=== PATIENT | male | born 1985 | race Caucasian/White ===

== ENCOUNTER 2020-08-13 08:15 | Outpatient (CLI) | payer BC, SELFPAY ==
--- NOTE | 2020-08-13 08:18 | ECG_ITS ---
Measurements Intervals [place] Rate: 84 P: 19 ME: 163 QRS: 21 QRSD: 102 T: 29 QT: 355 QTc: 421 Interpretive Statements SINUS RHYTHM INCOMPLETE RIGHT BUNDLE BRANCH BLOCK BORDERLINE ECG Electronically Signed On 08-13-2020 8:28:13 INTERVENTIONAL NEURORADIOLOGIST by Kevin Vasquez D.O.
== END 2020-08-13 08:16 | disposition home or self-care (01) ==
LOC: ANHSURGERY 08:18
PROVIDERS: PCP Family Medicine; Visit Provider Surgery
DX: Z01.810 Encounter for preprocedural cardiovascular examination (principal); I45.10 Unspecified right bundle-branch block; I10 Essential (primary) hypertension
CPT/HCPCS: 93005

== ENCOUNTER 2020-08-16 01:56 | Outpatient (CLI) | payer BC, SELFPAY ==
[2020-08-16 19:10] LABS: SARS-CoV-2 RNA PCR Negative
== END 2020-08-16 01:57 | disposition home or self-care (01) ==
LOC: ANHCOVIDDT 01:56
PROVIDERS: PCP Family Medicine; Visit Provider Surgery
DX: Z01.812 Encounter for preprocedural laboratory examination (principal); Z20.828 Contact with and (suspected) exposure to other viral communicable diseases
CPT/HCPCS: 87635; C9803; U0003

== ENCOUNTER 2020-08-19 00:33 | Day surgery (SDC) | payer BC, SELFPAY ==
[2020-08-06 08:40] VITALS: BMI 31.2
[2020-08-19] VITALS (7 sets, daily range): BP systolic 103–149; BP diastolic 53–83; PULSE 88–101; RESP 12–16; TEMP 36.4–36.8; O2SAT 94–100
[2020-08-19] MEDS: ACETAMINOPHEN 500 MG TABLET 1000 MG PO (10:39)
[2020-08-19] MEDS: LACTATED RINGERS 1,000 ML 30 ML IV CONT ×2 (10:40→12:58)
[2020-08-19] MEDS: KETOROLAC 15 MG/ML VIAL (*BKC) IV PUSH (10:45)
--- NOTE | 2020-08-19 10:54 | WPDANESEPPF ---
Anes - Initial Pre Proc Eval Procedure: Operation Date: 08/19/20 12:00 Proposed Procedures p Open Periumbilical Ventral Hernia Repair with Mesh - Casey Stephens DO Date/Time: 08/19/20 10:54 Surgeon: Casey Stephens DO Pre Op Diagnosis: ventral hernia Patient Data Age: 35 Gender: M Height: 6 ft Weight: 104.3 kg Allergies Allergy/AdvReac Type Severity Reaction Status Date / Time No Known Allergies Allergy Verified 08/19/20 10:49 Home Medications Medication Instructions Recorded Confirmed Type lisinopril 10 mg tablet 10 mg PO DAILY #90 tablet 05/02/20 08/19/20 Rx allopurinol 100 mg tablet 100 mg PO DAILY #90 tablet 06/05/20 08/19/20 Rx dextroamphetamine-amphetamine ER 10 mg PO DAILY #30 cap 07/05/20 08/19/20 Rx 10 mg 24hr capsule,extend release indomethacin 75 mg PO BID PRN 08/06/20 08/19/20 History Patient hx anesthesia problems: none Family hx anesthesia problems: none [facility] Past Medical History Medical History (Updated 08/19/20 @ 10:47 by Daquan Hammond MD) BMI 30.0-30.9,adult Hypertension HU (obstructive sleep apnea) Surgical History Surgical History History of repair of ACL right knee Family History Family History Father Diabetes mellitus Other Family history of type 2 diabetes mellitus Social History Social History Smoking status: Never smoker Alcohol intake: current Living arrangements: with family 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 Questions were solicited and answers provided to the satisfaction of the patient/family/POA.
--- NOTE | 2020-08-19 11:16 | PM.IMHP ---
H&P: HPI History of Present Illness Date/Time: 08/19/20 11:16 Chief complaint: ventral hernia Narrative: Gregory Luis III is a 35 year old male who presents for ventral hernia repair. He reports no changes since being seen in the office. Review of Systems Review of Systems: All systems reviewed & are unremarkable except as noted in HPI and below Constitutional: Constitutional: Denies chills, Denies fever(s), Denies headache(s) and Denies weight loss Eyes: Eyes: Denies change in vision ENT: Denies dizziness, Denies headache(s), Denies neck mass and Denies throat swelling Cardiovascular: Cardiovascular: Denies chest pain, Denies lightheadedness and Denies dyspnea Respiratory: Respiratory: Denies cough, Denies dyspnea and Denies wheezing Gastrointestinal: Gastrointestinal: Denies abdominal pain, Denies change in bowel habits, Denies nausea and Denies vomiting Genitourinary: Genitourinary: Denies hematuria and Denies dysuria Musculoskeletal: Musculoskeletal: Reports as per HPI Integumentary/Breasts: Skin/Breast: Reports as per HPI Neurologic: Denies dizziness and Denies headache(s) Allergic/Immunologic: Allergic/Immunologic: Denies throat swelling and Denies wheezing PMFSH Past Medical History Medical History BMI 30.0-30.9,adult Hypertension HU (obstructive sleep apnea) Surgical History Surgical History History of repair of ACL right knee Family History Family History Father Diabetes mellitus Other Family history of type 2 diabetes mellitus Social History Social History Smoking status: Never smoker Alcohol intake: current Living arrangements: with family 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, [employer] Spiritual care concerns: No Meds Home Medications and Allergies Home Medications Medication Instructions Recorded Confirmed Type lisinopril 10 mg tablet 10 mg PO DAILY #90 tablet 05/02/20 08/19/20 Rx allopurinol 100 mg tablet 100 mg PO DAILY #90 tablet 06/05/20 08/19/20 Rx dextroamphetamine-amphetamine ER 10 mg PO DAILY #30 cap 07/05/20 08/19/20 Rx 10 mg 24hr capsule,extend release indomethacin 75 mg PO BID PRN 08/06/20 08/19/20 History Allergies Allergy/AdvReac Type Severity Reaction Status Date / Time No Known Allergies Allergy Verified 08/19/20 10:49 Vital Signs Vital Signs - 24 hr 08/19/20 10:57 Temperature 36.8 C Pulse Rate 96 Respiratory Rate 16 Blood Pressure 146/83 H Pulse Oximetry 100 Exam Const: General: no acute distress and alert Orientation/consciousness: patient oriented x3 HENMT: Head: normocephalic and atraumatic Ears: hearing grossly normal bilaterally General nose exam: Normal nares present Mouth: Yes Normal oral and palatal mucosa present Eyes: Periorbital: periorbital findings normal Sclera: sclerae normal EOM: EOMs intact bilaterally Neck: Neck: normal visual inspection, no lymphadenopathy and trachea midline Chest: Chest palpation & inspection: normal inspection of the chest Resp: Effort & Inspection: normal respiratory effort Auscultation: clear to auscultation bilaterally Cardio: Jugular venous distension: no JVD Rate: regular rate Rhythm: regular rhythm Heart sounds: S1 normal heart sound present and S2 normal heart sound present Peripheral pulses: Peripheral pulses 2+ throughout GI: Inspection: normal to inspection and visible herniation (ventral hernia 1-2 cm near umbilicus) GI Palp: Yes Soft to palpation, No Tenderness to palpation present (GI), No Guarding due to palpation present (GI) and No Rebound tenderness present Percussion: Yes normal to percussion Auscultation: normal bowel sounds : General: Yes no CVA tenderness Back/Spine/Pelvis: Back:
--- NOTE | 2020-08-19 11:26 | WPDHPUPDATE1 ---
History and Physical Update Update Date/Time: 08/19/20 11:26 History and Physical has been reviewed, including an updated exam of the patient. There are NO changes in the patient's condition. Risks, benefits, and alternatives have been discussed and questions answered. Patient agrees to proceed with procedure.
--- NOTE | 2020-08-19 11:45 | SUR.PREOP ---
PT AMBULATED TO BATHROOM
--- NOTE | 2020-08-19 12:45 | SUR.OPER ---
Parietex Mesh [id number], Lot [id number] Exp 2025-02-10.
--- NOTE | 2020-08-19 12:52 | P.OP_ITS ---
Procedure Note - Detailed Date of procedure: 08/19/20 Pre-op diagnosis: ventral hernia Post-op diagnosis: same Procedure performed: Ventral hernia repair with Parietex ventral patch Description of procedure: * Procedure as well as risks, benefits, and alternatives were discussed with the patient. Written consent was obtained and placed in chart prior to procedure. Patient was brought back to surgical suite. He was placed supine on operating table. He was then intubated by Anesthesia Department. His abdomen was prepped and draped in sterile fashion using chlorhexidine prep. 0.5% bupivacaine with epinephrine was infiltrated locally around the operative area. A 4 cm curvilinear incision was made just superior to the umbilicus using a 15 blade scalpel. Electrocautery was used for hemostasis and for dissection down through the subcutaneous fat. Hernia sac was encountered and this was carefully freed up from surrounding subcutaneous fat using electrocautery. The hernia sac was freed up all the way down to the level of the fascia, and then it was reduced down below the fascial defect. The umbilical stalk was then lifted off of the fascia with electrocautery. The hernia defect was then measured. This was measuring approximately 10 mm. The decision was made to use a 6.6 cm Parietex ventral patch. The peritoneum was cleared under the fascia circumferentially around the hernia using blunt dissection and electrocautery. Once a wide enough pocket was created for the mesh, the mesh was then placed within this preperitoneal pocket and laid out flat centered on the hernia defect. The mesh appeared to be sitting in proper position. The mesh was then secured at the 4 corners using 0 Ethibond U-stitch trans fascial sutures. Once all 4 sutures were placed, the mesh was lifted up against the abdominal wall and appeared to be properly centered on the hernia defect. The fascia of the hernia defect was then reapproximated over the mesh using 0 Ethibond [id number] sutures. The 4 transfascial sutures were then tied down in place. The repair was inspected and appeared secure. 0.5% bupivacaine with epinephrine was infiltrated around the fascia and subcutaneous space. The umbilical stalk was then reapproximated to the fascia using a 3 0 Vicryl simple interrupted suture. The deep dermis was reapproximated using 3 0 Vicryl simple interrupted sutures, and then the skin was approximated using 4 Monocryl running subcuticular suture. Exofin glue was then applied on top. The patient was then awakened from anesthesia, extubated, and transferred to recovery. Implants: 6.6 cm Parietex Ventral Patch Anesthesia: GLMA and local (0.5% bupivacaine with epinephrine) Surgeon: Casey Stephens DO Estimated blood loss (mL): 5 Complications: No immediate complications Condition: stable Disposition: same day Findings: This is a 35-year-old man who presented with a bulge just superior to his umbilicus that was causing pain with activity over the past 4 months. He was found to have a reducible periumbilical ventral hernia on exam. Discussions were made with the patient about treatment options and decision was made to proceed with open ventral hernia repair with mesh. Open ventral hernia repair with mesh was performed. Patient had a 1 cm hernia defect located just superior to the umbilical stalk. The hernia sac was freed up and reduced back down into the abdominal cavity and a pocket was created around the fascial defect for mesh placement. A 6.6 cm Parietex ventral patch was placed. This was secured with 0 Ethibond U-stitch trans fascial sutures at the 4 tabs. No specimens were obtained for pathology.
== END 2020-08-19 14:30 | disposition home or self-care (01) ==
PROVIDERS: PCP Family Medicine; Visit Provider Surgery
PROC: (CPT 49560; principal; 2020-08-19 12:00)
DX: K43.9 Ventral hernia without obstruction or gangrene (principal); I10 Essential (primary) hypertension; G47.33 Obstructive sleep apnea (adult) (pediatric)
CPT/HCPCS: 49560; 49568; A9270; C1781; J1100; J1885; J2250; J2405; J2704; J3010; J7120

== ENCOUNTER 2022-09-01 10:22 | Outpatient (CLI) | payer OTHER, SELFPAY ==
[2022-09-01 10:56] LABS: Basophils Absolute Auto 0.1 K/mm3 (0.0-0.1); Basophils Percent Auto 1.4 % (0.2-1.2); Eosinophils Absolute Auto 0.2 K/mm3 (0-0.3); Eosinophils Percent Auto 2.4 % (0-4.4); Hematocrit 43.4 % (42.0-52.0); Hemoglobin 14.2 g/dL (14.0-18.0); Immature Granulocyte Absolute 0.11 K/mm3 (0.00-0.031); Immature Granulocyte Percent A 1.4 % (0-0.5); Lymphocytes Absolute Auto 2.69 K/mm3 (0.9-3.2); Lymphocytes Percent Auto 33.9 % (18.3-44.2); Mean Corpuscular HGB Conc 32.7 g/dl (32-36); Mean Corpuscular Hemoglobin 29.3 pg (26-34); Mean Corpuscular Volume 89.7 fl (80-100); Mean Platelet Volume 9.2 fl (7.4-10.4); Monocytes Absolute Auto 0.8 K/mm3 (0.1-0.6); Monocytes Percent Auto 9.7 % (2.6-8.5); Neutrophils Absolute Auto 4.1 K/mm3 (1.3-6.7); Neutrophils Percent Auto 51.2 % (45.5-73.1); Platelet Count Result 221 k/mm3 (150-375); Red Blood Count 4.84 M/mm3 (4.6-6.20); Red Cell Distribution Width 12.4 % (11.5-14.5); White Blood Count 7.9 K/mm3 (4.5-10.0)
[2022-09-01 11:09] LABS: Alanine Aminotransferase 56 U/L (6-50); Albumin Level 4.9 g/dL (3.5-5.1); Alkaline Phosphatase 58 U/L (38-126); Anion Gap 7 mmol/L (8-16); Aspartate Amino Transferase 36 U/L (17-59); Bilirubin,Total 0.5 mg/dL (0.2-1.3); Blood Urea Nitrogen 12 mg/dL (9-20); Calcium 9.4 mg/dL (8.4-10.2); Carbon Dioxide 31 mmol/L (22-30); Chloride 104 mmol/L (98-107); Cholesterol 180 mg/dL (0-200); Estimated Glomerular Filt Rate > 60; Glucose 99 mg/dL (65-110); HDL Direct 53 mg/dL; Potassium 4.7 mmol/L (3.4-5.0); Sodium 142 mmol/L (137-145); Triglycerides 296 mg/dL (<150)
[2022-09-01 11:21] LABS: LDL Cholesterol Direct 70 mg/dL
== END 2022-09-01 10:23 | disposition home or self-care (01) ==
LOC: ANHLAB 10:25
PROVIDERS: PCP Family Medicine; Visit Provider Physician Assistant Medical
DX: I10 Essential (primary) hypertension (principal); Z13.220 Encounter for screening for lipoid disorders
CPT/HCPCS: 36415; 80053; 80061; 85025

== ENCOUNTER 2025-06-06 08:24 | Outpatient (CLI) | payer OTHER, SELFPAY ==
--- OUTSIDE RECORDS SUMMARY | 2025-06-06 08:39 | XMS_ITS | Clinical Summary ---
Author Organization [facility] Address [address] [place] [address] Care Team Providers Care Diamond Sander Name Role Phone Anton Parra MD Primary Care Provider Allergies No known active allergies Medications ADDERALL XR 10 mg 24 hr capsule 0 9 Active lisinopril (PRINIVIL,ZESTR IL) 10 mg tablet 4 8 Active naproxen (NAPROSYN) 500 mg tablet 0 8 Active phentermine 37.5 mg capsule 0 9 Active metroNIDAZOLE (METROGEL) 0.75 % gelIndications: Acne Rosacea Apply to the face once every night 45 g 11 1 Active clindamycin (CLEOCIN T) 1 % lotion Apply to the face once daily in the morning 60 mL 11 1 Active selenium sulfide 2.5 % lotion Apply topically daily to affected area of scalp and trunk 118 mL 11 3 Active Active Problems Problem Noted Date Diagnosed Date Rosacea 03/17/2017 Folliculitis 03/17/2017 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 Family History Medical History Relation Name Comments Diabetes Father Family history of diabetes mellitus - (Added by TW Conv) Relation Name Status Comments Father Social History Tobacco Use Types Packs/Day Years Used Date Smoking Tobacco: Never Sex and Gender Information Value Date Recorded Sex Assigned at Not on file Legal Sex Male 5:11 AM [employer] Gender Identity Not on file Sexual Orientation Not on file Obstetrics History Plan of Treatment Health Maintenance Due Date Last Done Comments Depression Screening 1985 Hepatitis C Screening 1985 Varicella Vaccines (1 of 2 - 13+ 2-dose series) 1998 Hepatitis B Screening 2003 Regular Well Visit/Exam 18-64 2003 HPV Vaccines (1 - 3-dose SCD M series) 01/05/2012 DTaP/Tdap/Td Vaccine (2 - Td or Tdap) 02/02/2022 02/03/2012 Influenza Vaccine (#1) 2025 9, 06/20/2013 Pneumococcal vaccine <65 Aged Out No longer eligible based on patient's age to complete this topic Insurance [facility] [employer] HMO/POS Care Teams Diamond Sander Relationship Specialty Start Date End Date Anton Parra MD PCP - General Family Medicine 09/01/19
--- OUTSIDE RECORDS SUMMARY | 2025-06-06 08:39 | XMS_ITS | Clinical Summary ---
Author Organization [facility] Address [address] [place] [address] Care Team Providers Care Power Shear Operator Name Role Phone Unavailable Primary Care Provider Unavailabl e Allergies No known active allergies Medications cetirizine (ZYRTEC) 10 mg Oral tablet take 1 tablet (10MG) by oral route every day 2 Active 0mega-3 fatty acids-vitamin E (FISH OIL) 1,000 mg Oral Cap Take 1,000 mg by mouth 2 times daily. Active melatonin 3 mg Oral Tab Take 1 Tab by mouth nightly as needed. Active lisinopril (PRINIVIL) 5 mg Oral tablet Take 1 Tab by mouth daily. 30 Tab 3 3 Active clonazePAM (KLONOPIN) 1 mg Oral tablet take 1 tablet (1MG) by oral route 2 times every day as needed 60 Tab 0 3 Active lisinopriL (PRINIVIL) 10 mg tablet TAKE 1 TABLET BY MOUTH DAILY 90 Tablet 01/29/2023 4:33 PM CDT 3 Active lisinopriL (PRINIVIL) 10 mg tablet Take 1 Tablet (10 mg) by mouth daily. 90 Tablet 04/05/2023 4:43 PM CDT 3 Active selenium sulfide (SELSUN) 2.5 % Lotion Apply topically daily to affected area of scalp and trunk 118 mL 11 03/29/2024 3:04 PM CDT 3 Active amphetamine-de xtroamphetamin e (ADDERALL XR) 10 mg Extended Release 24 hour capsule Take 1 Capsule (10 mg) by mouth daily. 30 Capsule 09/29/2023 2:07 PM SENIOR LINUX UNIX ADMINISTRATOR 4 Active lisinopriL (PRINIVIL) 10 mg tablet Take 1 Tablet (10 mg) by mouth daily. 90 Tablet 2 10/04/2024 7:04 PM SENIOR LINUX UNIX ADMINISTRATOR 4 Active atomoxetine (STRATTERA) 25 mg capsule Take 2 Capsules (50 mg) by mouth daily. 180 Capsule 4 Active indomethacin (INDOCIN SR) 75 mg Extended Release capsule Take 1 capsule by mouth twice a day as needed for gout; administer with a meal/food; swallow whole; do not open, crush, dissolve , or chew 30 Capsule 4 Active atomoxetine (STRATTERA) 25 mg capsule Take 1 capsule Oral one time daily 90 days 90 Capsule 1 03/03/2024 12:21 PM CDT 4 Active lisinopriL (PRINIVIL) 10 mg tablet Take 1 Tablet (10 mg) by mouth daily. 90 Tablet 2 08/04/2024 9:28 AM SENIOR LINUX UNIX ADMINISTRATOR 4 Active phentermine (ADIPEX P) 37.5 mg tablet Take 1 Tablet (37.5 mg) by mouth daily. Must administer 30 minutes before or 1-2 hours after breakfast 30 Tablet 1 07/31/2024 9:10 AM SENIOR LINUX UNIX ADMINISTRATOR 4 Active lisinopriL (PRINIVIL) 10 mg tablet Take 1 Tablet (10 mg) by mouth daily. 90 Tablet 2 12/25/2024 4:33 PM CDT 4 Active allopurinoL (ZYLOPRIM) 100 mg tablet Take 1 Tablet (100 mg) by mouth daily. 90 Tablet 01/26/2025 2:04 PM CDT 5 Active lisinopriL (PRINIVIL) 10 mg tablet Take 1 Tablet (10 mg) by mouth daily. 90 Tablet 2 05/17/2025 6:46 PM CDT 5 Active lisdexamfetami ne (VYVANSE) 40 mg capsule Take 1 Capsule (40 mg) by mouth daily. Max Daily Amount: 40 mg 30 Capsule 06/04/2025 3:24 PM CDT 5 Active escitalopram oxalate (LEXAPRO) 10 mg tablet Take 1 Tablet (10 mg) by mouth daily. 30 Tablet 3 06/05/2025 6:54 PM CDT 5 Active traZODone (DESYREL) 50 mg tablet Take 1 Tablet (50 mg) by mouth daily at bedtime. 30 Tablet 2 06/05/2025 6:54 PM CDT 5 Active lisdexamfetami ne (VYVANSE) 40 mg capsule Take 1 Capsule (40 mg) by mouth daily. Max Daily Amount: 40 mg 30 Capsule 05/03/2025 5:22 PM CDT 5 06/04/20 25 Discontinu ed(Reorder ) Active Problems Problem Noted Date Diagnosed Date Urticaria 12/19/2012 Tobacco use disorder 12/19/2012 Overview (01/26/2013): States has slowly weaned himself off cigarettes & has not had any for the last 10 days ( January 13, 2013 ) Unspecified essential hypertension 03/14/2012 Obstructive sleep apnea (adult) (pediatric) 01/12 Generalized anxiety disorder 01/14/2012 Obesity, unspecified 01/14/2012 Immunizations Immunization Administration Dates Next Due (ADACEL/BOOSTRIX)(10 YR UP) TDAP VACCINE, 0.5ML, IM 02/03/2012 Influenza Vaccine Split 3+ Yrs PF IM 06/20/2013 Family History Medical History Relation Name Comments Other Brother 24 yrs Vertigo Diabetes Father 59 yrs Other Father 59 yrs S/P Gastric byp ass Sx Healthy Mother 56 yrs Healthy Sister 1 32 yrs Other Sister 2 38 yrs Drug abuse Relation Name Status Comments Brother 24 yrs Alive Father 59 yrs Alive Mother 56 yrs Alive Sister 1 32 yrs Alive Sister 2 38 yrs Alive Social History Tobacco Use Types Packs/Day Years Used Date Smoking Tobacco: Former Cigarettes 0.3 4 0 01/12/2009 - 01/12/2013 Smokeless Tobacco: Never Tobacco Cessation:Ready to Q uit: No; Counseling Given: Yes Alcohol Use Standard Drinks/Week Comments Yes 0 (1 standard drink = 0.6 oz pur e alcohol) socially Sex and Gender Information Value Date Recorded Sex Assigned at Not on file Legal Sex Male 7:31 PM SENIOR LINUX UNIX ADMINISTRATOR Gender Identity Not on file Sexual Orientation Not on file Occupation Industry Job Start Date Job End Date Not on file Not on file Not on file Not on file Last Filed Vital Signs Vital Sign Reading Time Taken Comments Blood Pressure 140/70 06/20/2013 4:02 PM CDT Pulse 100 06/20/2013 3:41 PM CDT Temperature 37 C (98.6 F) 06/20/2013 3:41 PM CDT Respiratory Rate 16 06/20/2013 3:41 PM CDT Oxygen Saturation - - Inhaled Oxygen Concentration - - Weight 107.5 kg (237 lb) 06/20/2013 3:41 PM CDT Height 185.4 cm (6' 1) 06/20/2013 3:41 PM CDT Body Mass Index 31.27 06/20/2013 3:41 PM CDT Plan of Treatment Health Maintenance Due Date Last Done Comments HEPATITIS B VACCINES (1 of 3 - 19+ 3-dose series) 12/13 HPV VACCINES (1 - 3-dose SCDM series) 01/05/2012 DTAP/TDAP/TD VACCINES (2 - Td or Tdap) 02/02/2022 INFLUENZA VACCINE (#1) 2025 06/20/2013 Insurance [facility] OPTIONS PPO [id number] RX [employer] (INTERNAL) [facility] [employer]
--- OUTSIDE RECORDS SUMMARY | 2025-06-06 08:39 | XMS_ITS | Patient Health Record ---
Author Organization [facility] Address [address] [place] [address] Care Team Providers Care Analyst Competitive Intelligence Name Role Phone Bonnie Awan Unavailable [phone] Allergies No Known Allergies Reason For Referral No Information Medications Medication SIG (Take, Route, Frequency, Duration) Notes Start Date End Date Status Selenium Sulfide 2.5 % Lotion External 11/11/2023 Unknown Lisinopril 10 MG Tablet Oral 11/11/2023 Unknown Atomoxetine HCl 25 MG Capsule 1 capsule Oral one time daily; Duration: 90 days 11/11/2023 Active Social History Sex Assigned At : Social History Observation Description Sex Assigned At Male Social History Additional Details Category Social Info Options Details Migrated Social History Migrated Social History Alcohol Intake: Moderate 10/07/2023,Tobacco Years: Former smoker 10/07/2023 Problems Problem Type SNOMED Code ICD Code Onset Dates Problem Status W/U Status Risk Notes Problem Attention deficit hyperactivity disorder, combined type (02552864) Attention-deficit hyperactivity disorder, combined type (F90.2) Active confirmed Plan Of Treatment No Information Insurance Providers Payer Name Payer Address Payer Phone Subscriber Number Group Number Insured Name Patient Relationship to Insured Coverage Start Date Coverage End Date [employer] Pos [address] [place] [address] [id number] FAVIOLA MONTERO Self - patient is the insured Medical (General) History Medical History History ICD Code Problems: Anger reaction Attention deficit hyperactivity disorder , combined type HTN Hospitalization History Reason Date(Month/Year) no hx [facility] admissions
[2025-06-06 09:04] LABS: Hematocrit 40.4 % (42.0-52.0); Hemoglobin 13.3 g/dL (14.0-18.0); Immature Granulocyte Percent A 0.9 % (0-0.5); Lymphocytes Absolute Auto 1.66 K/mm3 (0.9-3.2); Mean Corpuscular HGB Conc 32.9 g/dl (32-36); Mean Corpuscular Hemoglobin 30.2 pg (26-34); Mean Corpuscular Volume 91.8 fl (80-100); Nucleated Red Blood Cells Absolute Auto 0.000 K/mm3 (0.0-0.012); Nucleated Red Blood Cells Perc 0.0 % (0.0-0.2); Platelet Count Result 202 k/mm3 (150-375); Red Blood Count 4.40 M/mm3 (4.6-6.20); White Blood Count 8.1 K/mm3 (4.5-10.0)
[2025-06-06 09:37] LABS: Alanine Aminotransferase 52 U/L (6-50); Albumin Level 4.4 g/dL (3.5-5.1); Alkaline Phosphatase 52 U/L (38-126); Anion Gap 9 mmol/L (4-12); Aspartate Amino Transferase 48 U/L (17-59); Bilirubin,Total 0.7 mg/dL (0.2-1.3); Blood Urea Nitrogen 7 mg/dL (9-20); Calcium 8.7 mg/dL (8.4-10.2); Carbon Dioxide 28 mmol/L (22-30); Chloride 101 mmol/L (98-107); Cholesterol 145 mg/dL (0-200); Estimated Glomerular Filt Rate > 60; Glucose 127 mg/dL (65-110); HDL Direct 39 mg/dL; Potassium 3.9 mmol/L (3.4-5.0); Sodium 138 mmol/L (137-145); Total Protein 7.2 g/dL (6.3-8.2); Triglycerides 236 mg/dL (<150); Uric Acid 9.2 mg/dL (3.5-8.5)
[2025-06-06 10:14] LABS: Prostate Specific Antigen 0.5 ng/mL (< OR = 4.0); Thyroid Stimulating Hormone 2.270 uIU/mL (0.465-4.680)
[2025-06-06 10:21] LABS: Hemoglobin A1C 5.5 % (<5.7)
[2025-06-06 11:30] LABS: Hepatitis B Surface Antigen Negative (Negative)
[2025-06-06 11:35] LABS: HAV RESULT Negative (Negative); Hepatitis B Core IgM Result Negative (Negative)
[2025-06-07 10:08] LABS: GGT 102 IU/L (0-65)
[2025-06-11 00:07] LABS: Free Testosterone (Direct) 15.7 pg/mL (6.8-21.5)
== END 2025-06-06 08:25 | disposition home or self-care (01) ==
LOC: ANHLAB 08:26
PROVIDERS: PCP Family Medicine; Visit Provider Physician Assistant Medical
DX: Z13.220 Encounter for screening for lipoid disorders (principal); Z12.5 Encounter for screening for malignant neoplasm of prostate; G47.33 Obstructive sleep apnea (adult) (pediatric); R79.89 Other specified abnormal findings of blood chemistry; R73.09 Other abnormal glucose; M10.9 Gout, unspecified; R63.5 Abnormal weight gain
CPT/HCPCS: 36415; 80053; 80061; 80074; 82977; 83036; 84153; 84402; 84403; 84443; 84550; 85025; G0103